=== PATIENT | male | born 2000 | race Hispanic/Latino ===

== ENCOUNTER 2022-08-08 09:31 | Emergency (ER) | payer SELFPAY ==
[2022-08-08] MEDS ORDERED: Lidocaine 1% (PF) 30 ML VIAL ONE (09:58)
[2022-08-08] MEDS ORDERED: Boostrix 0.5 ML (Tdap) VIAL (>/=7 yrs of age) ONE ×2 (09:58→09:59)
[2022-08-08] MEDS ORDERED: Sodium Chloride 0.9% 100 ML ONE (10:42)
[2022-08-08] MEDS ORDERED: CEFAZOLIN 2 GM VIAL ONE (10:42)
== END 2022-08-08 11:37 | disposition short-term general hospital (02) ==
LOC: MADERS 09:31
DX: S62.611A Displaced fracture of proximal phalanx of left index finger, initial encounter for closed fracture (principal); S61.211A Laceration without foreign body of left index finger without damage to nail, initial encounter; Z23 Encounter for immunization; W23.1XXA Caught, crushed, jammed, or pinched between stationary objects, initial encounter
CPT/HCPCS: 12002; 90471; 90715; 96365; J2001; J3490